=== PATIENT | male | born 1995 | race Caucasian/White ===

== ENCOUNTER 2020-10-22 19:06 | Day surgery (SDC) | payer BC ==
[~2020-10-22 19:06] MED LIST: Bacitracin Zinc Ointment 30 gm TUBE ONE; Bupivacaine PF 0.5% 30 ML VIAL ONE; Dexamethasone 20 MG/5 ML VIAL ONE; Fentanyl 100 MCG/2 ML VIAL ONE; Ketorolac Tromethamine 30 MG/ML VIAL ONE; Lidocaine 1% PF 5 ML VIAL ONE; Ondansetron PF 4 MG/2 ML Vial ONE; PROPOFOL 200 MG/20 ML VIAL ONE; Rocuronium Bromide 10 MG/ML (10ML VIAL) ONE; Sodium Chloride 0.9% 10 ML ONE; Thrombin 5000 UNITS/5 ML VIAL ONE
[2020-10-22] MEDS ORDERED: HYDROcodone/Acetaminophen 5/325 mg Tablet ONE (21:55)
== END 2020-10-22 22:51 | disposition home or self-care (01) ==
LOC: SDC 19:06
PROVIDERS: ATTEND Orthopaedic Surgery Hand Surgery
PROC: 0RHS34Z Insertion of Internal Fixation Device into Right Carpometacarpal Joint, Percutaneous Approach (ICD-10-PCS; principal; 2020-10-22)
PROC: 0PSP34Z Reposition Right Metacarpal with Internal Fixation Device, Percutaneous Approach (ICD-10-PCS; principal; 2020-10-22)
DX: S63.054A Dislocation of other carpometacarpal joint of right hand, initial encounter (principal); S62.314A Displaced fracture of base of fourth metacarpal bone, right hand, initial encounter for closed fracture; S62.312A Displaced fracture of base of third metacarpal bone, right hand, initial encounter for closed fracture; S54.01XA Injury of ulnar nerve at forearm level, right arm, initial encounter; W19.XXXA Unspecified fall, initial encounter
CPT/HCPCS: 76000; J0690; J1100; J1885; J2405; J2704; J3010; J3490; S0020